=== PATIENT | female | born 1960 | race Caucasian/White ===

== ENCOUNTER 2016-10-27 18:32 | Emergency (ER) | payer BC ==
[~2016-10-27] VITALS: Ht 172.7 cm; Wt 80.0 kg
[~2016-10-27 18:32] MED LIST: DIVIGEL TOP; MULT-506 PO
[2016-10-27 18:54] VITALS: TEMP 36.9; Ht 172.7 cm; Wt 80.0 kg
[2016-10-27] MEDS ORDERED: MOME6000 NAE (20:38)
[2016-10-27] MEDS ORDERED: MONT1TAB5 PO (20:38)
[2016-10-27] MEDS ORDERED: Proair HFA INH (20:38)
[2016-10-27] MEDS ORDERED: ESTR1DIS12 TOP (20:38)
[2016-10-27] MEDS ORDERED: SALI1SPR3 NAE (20:38)
[2016-10-27] MEDS ORDERED: ACETAMINOPHEN 500 MG TAB PO STA (20:48)
[2016-10-27 20:49] VITALS: BP 118/81; PULSE 82; O2SAT 97
[2016-10-27] MEDS ORDERED: CYCL10TA6 PO (20:50)
[2016-10-27] MEDS ORDERED: FLEXERIL HOME PACK 10 MG VIAL PO ONE (21:00)
[2016-10-27] MEDS ORDERED: PROG200C8 PO (22:59)
[2016-10-27] MEDS ORDERED: METO25TA56 PO (22:59)
[2016-10-27] MEDS ORDERED: LEVO75TA5 PO (23:50)
--- NOTE | 2016-10-28 00:13 | EMERGENCY ROOM VISIT NOTE ---
History First contact with patient: 20:36 Chief Complaint: BACK PAIN Stated Complaint: BACK SPASMS AND COUGH History of Present Illness The patient is a 55 year old female who presents to the Emergency Room with complaints of lower back spasms radiating into the right buttock. The patient reports that her pain started this morning after moving furniture. She denies any lower extremity weakness, saddle paresthesias or difficulty with urination/ bowel movements. She does report a remote history of lower back problems, but denies any history of chronic back pain. The patient reports that she has had a cold for the past 2 weeks that is now finally improving after being treated with Augmentin and Zithromax antibiotics. The patient denies any lower back pain developing from her coughing. She denies any shortness of breath or wheezing. She does feel that the cough is improving at this point. The patient reports that she did take Tylenol at home that really helped with her discomfort. She currently rates her pain a 5 out of 10. Review of Systems 10 system review was performed and was negative except for pertinent positives and negatives as indicated in history of present illness Past Medical/Surgical History Medical Problems: (1) Tachycardia Family History Patient reports no known family medical history. Social History Smoking Status: Never Smoker Alcohol Use: occasionally Marital Status: Housing Status: lives with family Occupation Status: employed Current/Historical Medications Scheduled Cyclobenzaprine Hcl (Flexeril), 10 MG PO TID Estradiol (Minivelle), 1 PATCH TOP 2XWK Levothyroxine Sodium (Levothyroxine Sodium), 75 MCG PO DAILY Montelukast Sodium (Montelukast Sodium), 10 MG PO HS Multivitamin (Multivitamin), 1 TAB PO DAILY Progesterone Micronized (Prometrium), 200 MG PO DAILY Scheduled PRN Metoprolol Tartrate (Lopressor) (Lopressor), 25 MG PO DAILY PRN for Palpitations Mometasone Furoate (Nasal) (Mometasone Furoate), 2 SPRAYS HOMERO DAILY PRN for Nasal Congestion Saline (Saline Nasal [place]), 2 SPRAYS HOMERO UD PRN for Nasal Symptoms [Proair HFA], 2 PUFFS INH Q4H PRN for SOBW/Cough Allergies Coded Allergies: No Known Allergies (Unverified , 06/03/12) Physical Exam Vital Signs Date Time Temp Pulse Resp B/P Pulse Ox O2 Delivery O2 Flow Rate FiO2 1/30/17 20:49 82 18 118/81 97 Room Air 10/27/16 18:54 36.9 75 18 119/87 97 Room Air Pain Rating (0-10): 4.0 Physical Exam CONSTITUTIONAL: Healthy and well nourished. Alert and oriented X 3 with positive affect. Patient appears in mild discomfort from pain, and is standing in the examination room. HEENT: Normocephalic, atraumatic. Pupils equal, round and reactive. NECK: Full active range of motion without discomfort. RESPIRATORY: Clear to auscultation bilaterally with no wheezing, crackles, rhonchi or stridor. CARDIOVASCULAR: Regular rate and rhythm with no murmurs, rubs or gallops. GASTROINTESTINAL: Bowel sounds present in all quadrants. Soft and nontender to palpation. MUSCULOSKELETAL: Examination shows mild tenderness to palpation of the right lower lumbar paraspinous muscle and SI joints. Negative sitting straight leg raise. No tenderness to palpation through the central cervical spine. INTEGUMENTARY: No rash or other significant dermatologic conditions noted. NEUROLOGIC: Right lower extremity is sensory intact. Medical Decision & Procedures Medications Administered Medications (Trade) Dose Ordered Sig/Adwoa Route Start Time Stop Time Status Last Admin Dose Admin Acetaminophen (Tylenol Tab) 1,000 mg NOW STAT PO 10/27/16 20:48 10/27/16 20:49 DC 10/27/16 20:59 1,000 MG Cyclobenzaprine HCl (FLEXERIL 10MG Home Pack) 1 homepack UD ONCE PO 10/27/16 21:00 10/27/16 21:01 DC 10/27/16 20:59 1 HOMEPACK ED Course Patient history and physical exam were performed. Nurse's notes were reviewed. The patient believes that her pain is likely from a muscle spasm. I do feel that a trial of Flexeril is warranted. She was provided a home pack and prescription for Flexeril. She was provided additional verbal and written instructions for back strain care. She was encouraged to avoid heavy lifting or sitting for long periods of time. Intermittent application of ice over the first few days, then moist heat as needed. I also encouraged her to alternate ibuprofen and Tylenol for better baseline pain relief. She was instructed to follow-up with her family doctor as needed if symptoms persist. Return to the emergency department with symptoms consistent with an emergent compressive neuropathy, which were discussed with the patient. The patient was happy with plan of care, voiced understanding of all discharge instructions, and rated her pain a 4 out of 10 at the time of discharge. Medical Decision Impression Primary Impression: Lumbar strain Additional Impression: Bronchitis Departure Information Dispostion Home / Self-Care Condition GOOD Prescriptions Cyclobenzaprine Hcl (FLEXERIL) 10 Mg Tab 10 MG PO TID for spasm, #15 TAB Prov: Bryan Blackmon PA 10/27/16 Forms HOME CARE DOCUMENTATION FORM, IMPORTANT VISIT INFORMATION Patient Instructions [facility], ED Sprain Strain Lumbar Additional Instructions Intermittently apply ice to back for the first 48 hrs for swelling and pain, then moist heat as needed. Do not sit for long periods of time. Avoid heavy lifting. Ibuprofen 800 mg and/or Tylenol 1000 mg every 8 hours. You may also alternate these medications for more effective pain relief: Ibuprofen --4 HRS--> Tylenol --4 HRS--> ibuprofen --4 HRS--> Tylenol .... Flexeril as needed for muscle spasms. Do not drink or drive while taking Flexeril. Follow-up with your family doctor if symptoms persist. Return to the emergency department for any significantly worsening pain, lower extremity weakness, bladder/bowel difficulties or incontinence. Problem Qualifiers Primary Impression: Lumbar strain Encounter type: initial encounter Qualified Codes: S39.012A - Strain of muscle, fascia and tendon of lower back, initial encounter
== END 2016-10-27 21:03 | disposition home or self-care (01) ==
LOC: C.EDB 18:33 → C.EDD 21:03
DX: S39.012A Strain of muscle, fascia and tendon of lower back, initial encounter (principal); J40 Bronchitis, not specified as acute or chronic; R00.0 Tachycardia, unspecified; X58.XXXA Exposure to other specified factors, initial encounter; Y93.E9 Activity, other interior property and clothing maintenance; Y92.89 Other specified places as the place of occurrence of the external cause; Y99.8 Other external cause status